=== PATIENT | male | born 1975 | race Caucasian/White ===

== ENCOUNTER 2021-07-11 13:53 | Emergency (ER) | payer BC ==
[~2021-07-11] VITALS: Ht 172.7 cm; Wt 95.3 kg
[2021-07-11 13:54] VITALS: BP 136/83
== END 2021-07-11 16:01 | disposition left against medical advice (07) ==
LOC: M ED 13:53
DX: Z53.21 Procedure and treatment not carried out due to patient leaving prior to being seen by health care provider (principal)